=== PATIENT | female | born 1985 | race African-American/Black ===

== ENCOUNTER 2016-08-22 15:21 | Emergency (ER) | payer MEDICAID ==
[~2016-08-22] VITALS: Ht 157.5 cm; Wt 45.0 kg
[2016-08-22 16:33] VITALS: BP 125/62
== END 2016-08-22 19:30 | disposition left against medical advice (07) ==
LOC: ER 15:21
DX: Z53.21 Procedure and treatment not carried out due to patient leaving prior to being seen by health care provider (principal)